=== PATIENT | male | born 1950 | race Asian ===

== ENCOUNTER 2022-10-11 16:12 | Inpatient (IN) | payer MEDICARE ==
[~2022-10-11] VITALS: Ht 167.6 cm; Wt 91.2 kg
[2022-10-12] MEDS ORDERED: ACETAMINOPHEN 325 MG TABLET PO PRN (15:00)
[2022-10-12] MEDS ORDERED: DEXTROSE 50%-WATER 25 GM/50 ML SYRINGE IVP PRN (15:00)
[2022-10-12 16:15] VITALS: BP 127/67; PULSE 77; RESP 19; TEMP 98.3; O2SAT 96
[2022-10-12 16:42] VITALS: BP 127/67; PULSE 77; RESP 19; TEMP 98.3; O2SAT 96
[2022-10-12 17:45] LABS: GLUCOMETER DEV NAME(LOC) 2WR.2B; GLUCOSE,POINT OF CARE 217 MG/DL (70-110)
[2022-10-12] MEDS ORDERED: TraMADol HCL 50 MG TABLET PO PRN (17:45)
[2022-10-12] MEDS ORDERED: OxyCODONE HCL 5 MG IR TABLET PO PRN (18:00)
[2022-10-12] MEDS: INSULIN LISPRO 100 UNITS/ML SQ PRN ×2 (18:26→20:10)
[2022-10-12 19:59] VITALS: BP 122/64; PULSE 85; RESP 20; TEMP 98.3; O2SAT 97
[2022-10-12] MEDS: MELATONIN 3 MG TABLET PO PRN (19:59)
[2022-10-12] MEDS: ETHYL ALCOHOL 62% ANTISEPTIC NASAL SANITIZER 0.6 ML AMPUL NASAL SCH (20:10)
[2022-10-12 20:36] LABS: GLUCOMETER DEV NAME(LOC) 2WR.2B; GLUCOSE,POINT OF CARE 226 MG/DL (70-110)
[2022-10-12 21:00] VITALS: O2SAT 97
[2022-10-13 06:31] LABS: GLUCOMETER DEV NAME(LOC) 2WR.2B; GLUCOSE,POINT OF CARE 157 MG/DL (70-110)
[2022-10-13] MEDS: ETHYL ALCOHOL 62% ANTISEPTIC NASAL SANITIZER 0.6 ML AMPUL NASAL SCH ×2 (08:04→21:22)
[2022-10-13 08:05] VITALS: BP 129/64; PULSE 74; RESP 18; TEMP 98.1; O2SAT 98
[2022-10-13] MEDS: INSULIN LISPRO 100 UNITS/ML SQ PRN ×4 (08:08→21:13)
[2022-10-13 08:28] LABS: BASOPHILS % (AUTO) 0.5 % (0.0-2.0); EOSINOPHILS % (AUTO) 0 % (1.0-6.0); HEMATOCRIT 35.2 % (41-53); HEMOGLOBIN 12.5 g/dL (13.5-17.5); LYMPHOCYTES # (AUTO) 0.7 K/uL (1.0-4.8); LYMPHOCYTES % (AUTO) 9.2 % (22.0-44.0); MEAN CORPUSCULAR HEMOGLOBIN 38.9 pg (26.0-34.0); MEAN CORPUSCULAR HGB CONC 35.5 G/dL (31.0-37.0); MEAN CORPUSCULAR VOLUME 110 fL (80-100); MONOCYTES # (AUTO) 0.9 K/uL (0.1-1.0); MONOCYTES % (AUTO) 12.7 % (2.0-9.0); NEUTROPHILS # (AUTO) 5.7 K/uL (1.8-7.7); NEUTROPHILS % (AUTO) 77.6 % (40.0-70.0); PLATELET COUNT (AUTO) 77 K/uL (150-450); RED CELL DISTRIBUTION WIDTH 18.6 % (11.5-14.5); WHITE BLOOD COUNT (AUTO) 7.3 K/uL (4.5-11.0)
[2022-10-13 08:45] LABS: ALANINE AMINOTRANSFERASE 67 U/L (12-78); ALBUMIN 2.1 g/dL (3.4-5.0); ALKALINE PHOSPHATASE 129 U/L (46-116); ANION GAP 5 mmol/L (8-16); ASPARTATE AMINOTRANSFERASE 50 U/L (15-37); BILIRUBIN,TOTAL 2.2 mg/dL (0.1-1.0); CALCIUM, TOTAL 8.3 mg/dL (8.8-10.5); CARBON DIOXIDE 28 mmol/L (22-29); CHLORIDE 105 mmol/L (98-107); CREATININE 0.84 mg/dL (0.60-1.30); GLOMERULAR FILTR. RATE CALC > 60 mL/min (>60); GLUCOSE,RANDOM 144 mg/dL (70-110); SODIUM SERUM 138 mmol/L (136-145); TOTAL PROTEIN, SERUM 4.9 g/dL (6.4-8.2); UREA NITROGEN, BLOOD 37 mg/dL (7-18)
[2022-10-13] MEDS: EMPAGLIFLOZIN 25 MG TABLET PO SCH (08:49)
[2022-10-13] MEDS: LISINOPRIL 20 MG TABLET PO SCH (08:49)
[2022-10-13] MEDS: PANTOPRAZOLE SODIUM 40 MG DR TABLET PO SCH (08:49)
[2022-10-13] MEDS ORDERED: FUROSEMIDE 20 MG TABLET PO SCH (09:00)
[2022-10-13] MEDS ORDERED: FUROSEMIDE 20 MG TABLET PO PRN (09:00)
[2022-10-13 09:04] VITALS: BP 129/64; PULSE 74; RESP 18; TEMP 98.1; O2SAT 98
[2022-10-13 09:12] VITALS: O2SAT 98
[2022-10-13 11:46] LABS: GLUCOMETER DEV NAME(LOC) 2WR.2B; GLUCOSE,POINT OF CARE 172 MG/DL (70-110)
[2022-10-13] MEDS ORDERED: SODIUM CHLORIDE 0.9% IRRIG BTL 1,000 ML IRRIG ONE (12:02)
[2022-10-13 17:16] LABS: GLUCOMETER DEV NAME(LOC) 2WR.1D; GLUCOSE,POINT OF CARE 206 MG/DL (70-110)
[2022-10-13 17:59] LABS: INR 1.2 (0.9-1.1); PROTHROMBIN TIME 12.1 SEC (9.4-11.6)
[2022-10-13 19:35] VITALS: BP_SYST 109; BP_SYST 133; BP_DIAS 71; BP_DIAS 77; PULSE 84; RESP 18; TEMP 98; O2SAT 99
[2022-10-13 21:01] LABS: GLUCOMETER DEV NAME(LOC) 2WR.1D; GLUCOSE,POINT OF CARE 231 MG/DL (70-110)
[2022-10-13] MEDS: MELATONIN 3 MG TABLET PO PRN (21:08)
[2022-10-13] MEDS: INSULIN GLARGINE,HUM.REC.ANLOG 100 UNITS/ML SQ SCH (21:12)
[2022-10-14 00:47] VITALS: O2SAT 99
[2022-10-14] MEDS ORDERED: FURO20 PO (01:13)
[2022-10-14] MEDS ORDERED: EMPA25TA3 PO (01:13)
[2022-10-14] MEDS ORDERED: INSLAN SQ (01:13)
[2022-10-14 06:36] LABS: GLUCOMETER DEV NAME(LOC) 2WR.1D; GLUCOSE,POINT OF CARE 153 MG/DL (70-110)
[2022-10-14 08:00] VITALS: BP 114/60; PULSE 95; RESP 18; TEMP 98.3; O2SAT 97
[2022-10-14] MEDS: ETHYL ALCOHOL 62% ANTISEPTIC NASAL SANITIZER 0.6 ML AMPUL NASAL SCH ×2 (08:05→21:07)
[2022-10-14] MEDS: EMPAGLIFLOZIN 25 MG TABLET PO SCH (08:05)
[2022-10-14] MEDS: LISINOPRIL 20 MG TABLET PO SCH (08:06)
[2022-10-14] MEDS: MULTIVITAMINS WITH MINERALS, THERAPEUTIC TABLET PO SCH (08:06)
[2022-10-14] MEDS: PANTOPRAZOLE SODIUM 40 MG DR TABLET PO SCH (08:06)
[2022-10-14] MEDS: INSULIN LISPRO 100 UNITS/ML SQ PRN ×4 (08:07→20:44)
[2022-10-14] MEDS ORDERED: LISINOPRIL 10 MG TABLET PO SCH (09:00)
[2022-10-14] MEDS ORDERED: PANTOPRAZOLE SODIUM 40 MG DR TABLET PO SCH (09:00)
[2022-10-14 10:16] VITALS: O2SAT 97
[2022-10-14 13:01] LABS: GLUCOMETER DEV NAME(LOC) 2WR.1D; GLUCOSE,POINT OF CARE 162 MG/DL (70-110)
[2022-10-14 17:16] LABS: GLUCOMETER DEV NAME(LOC) 2WR.1D; GLUCOSE,POINT OF CARE 183 MG/DL (70-110)
[2022-10-14 19:40] VITALS: BP 113/63; PULSE 83; RESP 16; TEMP 98.3; O2SAT 97
[2022-10-14] MEDS: INSULIN GLARGINE,HUM.REC.ANLOG 100 UNITS/ML SQ SCH (20:45)
[2022-10-14] MEDS: LACTULOSE 20 GM/30 ML SOLUTION UDCUP PO PRN (21:10)
[2022-10-14 22:55] VITALS: O2SAT 97
[2022-10-15 00:01] LABS: GLUCOMETER DEV NAME(LOC) 2WR.1D; GLUCOSE,POINT OF CARE 151 MG/DL (70-110)
[2022-10-15 06:56] LABS: GLUCOMETER DEV NAME(LOC) 2WR.2B; GLUCOSE,POINT OF CARE 98 MG/DL (70-110)
[2022-10-15] MEDS: LACTULOSE 20 GM/30 ML SOLUTION UDCUP PO PRN (07:16)
[2022-10-15 07:35] VITALS: BP 104/58; PULSE 85; RESP 18; TEMP 98.3; O2SAT 97
[2022-10-15] MEDS ORDERED: LACTULOSE 20 GM/30 ML SOLUTION UDCUP PO ONE (08:15)
[2022-10-15] MEDS: EMPAGLIFLOZIN 25 MG TABLET PO SCH (08:30)
[2022-10-15] MEDS: PANTOPRAZOLE SODIUM 40 MG DR TABLET PO SCH (08:30)
[2022-10-15] MEDS: MULTIVITAMINS WITH MINERALS, THERAPEUTIC TABLET PO SCH (08:30)
[2022-10-15] MEDS ORDERED: LISINOPRIL 10 MG TABLET PO SCH (09:00)
[2022-10-15] MEDS: SPIRONOLACTONE 25 MG TABLET PO SCH (09:11)
[2022-10-15] MEDS: FUROSEMIDE 20 MG TABLET PO SCH (09:11)
[2022-10-15] MEDS: ETHYL ALCOHOL 62% ANTISEPTIC NASAL SANITIZER 0.6 ML AMPUL NASAL SCH ×2 (09:11→20:43)
[2022-10-15] MEDS: INSULIN LISPRO 100 UNITS/ML SQ PRN ×3 (12:34→20:41)
[2022-10-15 12:51] LABS: GLUCOMETER DEV NAME(LOC) 2WR.2B; GLUCOSE,POINT OF CARE 161 MG/DL (70-110)
[2022-10-15 13:00] VITALS: O2SAT 97
[2022-10-15] MEDS: LACTULOSE 20 GM/30 ML SOLUTION UDCUP PO SCH ×4 (14:00→23:32)
[2022-10-15 17:00] VITALS: BP 113/57; PULSE 89; RESP 18; TEMP 98.1; O2SAT 99
[2022-10-15 18:26] LABS: GLUCOMETER DEV NAME(LOC) 2WR.2B; GLUCOSE,POINT OF CARE 166 MG/DL (70-110)
[2022-10-15 20:00] VITALS: BP 116/56; PULSE 95; RESP 18; TEMP 98.5; O2SAT 96
[2022-10-15] MEDS: INSULIN GLARGINE,HUM.REC.ANLOG 100 UNITS/ML SQ SCH (20:42)
[2022-10-15 20:56] LABS: GLUCOMETER DEV NAME(LOC) 2WR.2B; GLUCOSE,POINT OF CARE 164 MG/DL (70-110)
[2022-10-16 06:46] LABS: GLUCOMETER DEV NAME(LOC) 2WR.2B; GLUCOSE,POINT OF CARE 103 MG/DL (70-110)
[2022-10-16] MEDS: ETHYL ALCOHOL 62% ANTISEPTIC NASAL SANITIZER 0.6 ML AMPUL NASAL SCH ×2 (09:05→19:54)
[2022-10-16] MEDS: MULTIVITAMINS WITH MINERALS, THERAPEUTIC TABLET PO SCH (09:06)
[2022-10-16] MEDS: SPIRONOLACTONE 25 MG TABLET PO SCH (09:06)
[2022-10-16] MEDS: EMPAGLIFLOZIN 25 MG TABLET PO SCH (09:06)
[2022-10-16] MEDS: PANTOPRAZOLE SODIUM 40 MG DR TABLET PO SCH (09:06)
[2022-10-16] MEDS: FUROSEMIDE 20 MG TABLET PO SCH (09:07)
[2022-10-16] MEDS: LACTULOSE 20 GM/30 ML SOLUTION UDCUP PO SCH ×3 (09:11→23:27)
[2022-10-16 09:16] VITALS: BP 121/57; PULSE 80; RESP 18; O2SAT 99
[2022-10-16 15:00] LABS: GLUCOMETER DEV NAME(LOC) 2WR.2B; GLUCOSE,POINT OF CARE 161 MG/DL (70-110)
[2022-10-16 16:01] LABS: GLUCOMETER DEV NAME(LOC) 2WR.1D; GLUCOSE,POINT OF CARE 141 MG/DL (70-110)
[2022-10-16] MEDS: INSULIN LISPRO 100 UNITS/ML SQ PRN ×2 (17:54→20:48)
[2022-10-16] MEDS: INSULIN GLARGINE,HUM.REC.ANLOG 100 UNITS/ML SQ SCH (20:47)
[2022-10-16 21:01] LABS: GLUCOMETER DEV NAME(LOC) 2WR.1D; GLUCOSE,POINT OF CARE 189 MG/DL (70-110)
[2022-10-16 21:11] VITALS: BP 127/55; PULSE 101; RESP 18; TEMP 99; O2SAT 100
[2022-10-16 22:16] VITALS: O2SAT 100
[2022-10-16 23:02] LABS: GLUCOMETER DEV NAME(LOC) 2WR.2B; GLUCOSE,POINT OF CARE 188 MG/DL (70-110)
[2022-10-16 23:16] VITALS: PULSE 97; TEMP 98.7
[2022-10-17 00:49] LABS: APPEARANCE,URINE TURBID (CLEAR); BILIRUBIN,URINE NEGATIVE (NEGATIVE); COLOR,URINE YELLOW (YELLOW); GLUCOSE, URINE (UA) >=1000 mg/dL (NEGATIVE); KETONES,URINE NEGATIVE (NEGATIVE); LEUKOCYTE ESTERASE ,URINE LARGE (NEGATIVE); NITRATE,URINE NEGATIVE (NEGATIVE); OCCULT BLOOD,URINE LARGE (NEGATIVE); PROTEIN,URINE 30-70 mg/dL (NEGATIVE); SPECIFIC GRAVITIY, URINE 1.029 (1.003-1.030); UROBILINOGEN,URINE <=1.0 mg/dL (<=1.0)
[2022-10-17 00:59] LABS: BACTERIA,URINE Moderate /HPF (None Seen); RBC,URINE 26-50 /HPF (0-2); SQUAMOUS EPITHELIAL CELL,UR None Seen /LPF (None Seen); WBC,URINE 26-50 /HPF (0-5)
[2022-10-17 07:10] LABS: EOSINOPHILS % (AUTO) 0.8 % (1.0-6.0); LYMPHOCYTES # (AUTO) 0.9 K/uL (1.0-4.8); LYMPHOCYTES % (AUTO) 7.9 % (22.0-44.0); MEAN CORPUSCULAR HEMOGLOBIN 38.2 pg (26.0-34.0); MEAN CORPUSCULAR HGB CONC 34.2 G/dL (31.0-37.0); MEAN CORPUSCULAR VOLUME 112 fL (80-100); MONOCYTES # (AUTO) 0.9 K/uL (0.1-1.0); MONOCYTES % (AUTO) 7.8 % (2.0-9.0); NEUTROPHILS # (AUTO) 9.1 K/uL (1.8-7.7); NEUTROPHILS % (AUTO) 82.5 % (40.0-70.0); RED BLOOD CELL COUNT(AUTO) 3.14 MIL/uL (4.50-5.90); RED CELL DISTRIBUTION WIDTH 18.3 % (11.5-14.5)
[2022-10-17 07:26] LABS: ALANINE AMINOTRANSFERASE 68 U/L (12-78); ALKALINE PHOSPHATASE 146 U/L (46-116); ANION GAP 6 mmol/L (8-16); ASPARTATE AMINOTRANSFERASE 55 U/L (15-37); BILIRUBIN,TOTAL 3.4 mg/dL (0.1-1.0); CALCIUM, TOTAL 7.7 mg/dL (8.8-10.5); CARBON DIOXIDE 25 mmol/L (22-29); CHLORIDE 106 mmol/L (98-107); CREATININE 0.93 mg/dL (0.60-1.30); GLOMERULAR FILTR. RATE CALC > 60 mL/min (>60); GLUCOSE,RANDOM 123 mg/dL (70-110); POTASSIUM 3.9 mmol/L (3.5-5.1); SODIUM SERUM 137 mmol/L (136-145); TOTAL PROTEIN, SERUM 4.6 g/dL (6.4-8.2); UREA NITROGEN, BLOOD 17 mg/dL (7-18)
[2022-10-17 07:31] LABS: GLUCOMETER DEV NAME(LOC) 2WR.1D; GLUCOSE,POINT OF CARE 120 MG/DL (70-110)
[2022-10-17] MEDS: ETHYL ALCOHOL 62% ANTISEPTIC NASAL SANITIZER 0.6 ML AMPUL NASAL SCH ×2 (07:37→20:12)
[2022-10-17] MEDS: SPIRONOLACTONE 25 MG TABLET PO SCH (07:38)
[2022-10-17] MEDS: EMPAGLIFLOZIN 25 MG TABLET PO SCH (07:40)
[2022-10-17] MEDS: LACTULOSE 20 GM/30 ML SOLUTION UDCUP PO SCH ×3 (07:40→22:09)
[2022-10-17] MEDS: MULTIVITAMINS WITH MINERALS, THERAPEUTIC TABLET PO SCH (07:40)
[2022-10-17] MEDS: FUROSEMIDE 20 MG TABLET PO SCH (07:41)
[2022-10-17] MEDS: PANTOPRAZOLE SODIUM 40 MG DR TABLET PO SCH (07:41)
[2022-10-17 07:50] VITALS: BP 124/67; PULSE 98; RESP 18; TEMP 98.4; O2SAT 98
[2022-10-17 08:18] LABS: PLATELET COUNT (AUTO) 53 K/uL (150-450); RBC MORPHOLOGY COMMENT ABNORMAL RBC MORPH
[2022-10-17 08:30] VITALS: O2SAT 98
[2022-10-17 11:51] LABS: GLUCOMETER DEV NAME(LOC) 2WR.2B; GLUCOSE,POINT OF CARE 180 MG/DL (70-110)
[2022-10-17] MEDS: INSULIN LISPRO 100 UNITS/ML SQ PRN ×3 (12:16→20:46)
[2022-10-17 17:31] LABS: GLUCOMETER DEV NAME(LOC) 2WR.1D; GLUCOSE,POINT OF CARE 176 MG/DL (70-110)
[2022-10-17 19:34] VITALS: BP 130/57; PULSE 101; RESP 18; TEMP 98.5; O2SAT 99
[2022-10-17] MEDS: INSULIN GLARGINE,HUM.REC.ANLOG 100 UNITS/ML SQ SCH (20:45)
[2022-10-17 21:31] LABS: GLUCOMETER DEV NAME(LOC) 2WR.1D; GLUCOSE,POINT OF CARE 228 MG/DL (70-110)
[2022-10-17 23:36] VITALS: O2SAT 99
[2022-10-18 07:01] LABS: GLUCOMETER DEV NAME(LOC) 2WR.1D; GLUCOSE,POINT OF CARE 96 MG/DL (70-110)
[2022-10-18 08:00] VITALS: BP 116/57; PULSE 89; RESP 19; TEMP 98.5; O2SAT 97
[2022-10-18] MEDS: MULTIVITAMINS WITH MINERALS, THERAPEUTIC TABLET PO SCH (08:29)
[2022-10-18] MEDS: FUROSEMIDE 20 MG TABLET PO SCH (08:29)
[2022-10-18] MEDS: ETHYL ALCOHOL 62% ANTISEPTIC NASAL SANITIZER 0.6 ML AMPUL NASAL SCH ×2 (08:29→20:19)
[2022-10-18] MEDS: SPIRONOLACTONE 25 MG TABLET PO SCH (08:29)
[2022-10-18] MEDS: PANTOPRAZOLE SODIUM 40 MG DR TABLET PO SCH (08:29)
[2022-10-18] MEDS: EMPAGLIFLOZIN 25 MG TABLET PO SCH (08:29)
[2022-10-18] MEDS: LACTULOSE 20 GM/30 ML SOLUTION UDCUP PO SCH ×3 (08:29→23:01)
[2022-10-18] MEDS: NITROFURANTOIN MONOHYD/M-CRYST 100 MG CAPSULE [MACROBID] PO SCH ×2 (10:42→20:14)
[2022-10-18] MEDS: INSULIN LISPRO 100 UNITS/ML SQ PRN ×3 (12:18→20:19)
[2022-10-18 12:36] LABS: GLUCOMETER DEV NAME(LOC) 2WR.1D; GLUCOSE,POINT OF CARE 168 MG/DL (70-110)
[2022-10-18 17:16] LABS: GLUCOMETER DEV NAME(LOC) 2WR.1D; GLUCOSE,POINT OF CARE 212 MG/DL (70-110)
[2022-10-18 20:06] LABS: GLUCOMETER DEV NAME(LOC) 2WR.1D; GLUCOSE,POINT OF CARE 208 MG/DL (70-110)
[2022-10-18] MEDS: TAMSULOSIN HCL 0.4 MG CAPSULE PO SCH (20:14)
[2022-10-18] MEDS: INSULIN GLARGINE,HUM.REC.ANLOG 100 UNITS/ML SQ SCH (20:18)
[2022-10-18 20:25] VITALS: BP 131/72; PULSE 103; RESP 18; TEMP 99.2; O2SAT 97
[2022-10-18 20:38] VITALS: O2SAT 97
[2022-10-19] VITALS (7 sets, daily range): BP systolic 114–122; BP diastolic 56–65; PULSE 94–108; RESP 19; TEMP 98.5–99.6; O2SAT 93–97
[2022-10-19 06:47] LABS: GLUCOMETER DEV NAME(LOC) 2WR.1D; GLUCOSE,POINT OF CARE 176 MG/DL (70-110)
[2022-10-19] MEDS: FUROSEMIDE 20 MG TABLET PO SCH (08:17)
[2022-10-19] MEDS: SPIRONOLACTONE 25 MG TABLET PO SCH (08:17)
[2022-10-19] MEDS: EMPAGLIFLOZIN 25 MG TABLET PO SCH (08:17)
[2022-10-19] MEDS: NITROFURANTOIN MONOHYD/M-CRYST 100 MG CAPSULE [MACROBID] PO SCH ×2 (08:17→20:06)
[2022-10-19] MEDS: PANTOPRAZOLE SODIUM 40 MG DR TABLET PO SCH (08:17)
[2022-10-19] MEDS: MULTIVITAMINS WITH MINERALS, THERAPEUTIC TABLET PO SCH (08:17)
[2022-10-19] MEDS: LACTULOSE 20 GM/30 ML SOLUTION UDCUP PO SCH ×3 (08:17→23:00)
[2022-10-19] MEDS: ETHYL ALCOHOL 62% ANTISEPTIC NASAL SANITIZER 0.6 ML AMPUL NASAL SCH ×2 (08:17→20:06)
[2022-10-19] MEDS: INSULIN LISPRO 100 UNITS/ML SQ PRN ×4 (08:28→20:14)
[2022-10-19 12:31] LABS: GLUCOMETER DEV NAME(LOC) 2WR.1D; GLUCOSE,POINT OF CARE 198 MG/DL (70-110)
[2022-10-19 16:56] LABS: GLUCOMETER DEV NAME(LOC) 2WR.1D; GLUCOSE,POINT OF CARE 220 MG/DL (70-110)
[2022-10-19] MEDS: TAMSULOSIN HCL 0.4 MG CAPSULE PO SCH (20:08)
[2022-10-19] MEDS: INSULIN GLARGINE,HUM.REC.ANLOG 100 UNITS/ML SQ SCH (20:13)
[2022-10-20 00:41] LABS: GLUCOMETER DEV NAME(LOC) 2WR.1D; GLUCOSE,POINT OF CARE 173 MG/DL (70-110)
[2022-10-20 07:06] LABS: GLUCOMETER DEV NAME(LOC) 2WR.2B; GLUCOSE,POINT OF CARE 139 MG/DL (70-110)
[2022-10-20] MEDS: ETHYL ALCOHOL 62% ANTISEPTIC NASAL SANITIZER 0.6 ML AMPUL NASAL SCH ×2 (07:43→23:11)
[2022-10-20] MEDS: NITROFURANTOIN MONOHYD/M-CRYST 100 MG CAPSULE [MACROBID] PO SCH ×2 (07:43→23:17)
[2022-10-20] MEDS: LACTULOSE 20 GM/30 ML SOLUTION UDCUP PO SCH ×3 (07:43→23:11)
[2022-10-20] MEDS: MULTIVITAMINS WITH MINERALS, THERAPEUTIC TABLET PO SCH (07:43)
[2022-10-20] MEDS: EMPAGLIFLOZIN 25 MG TABLET PO SCH (07:43)
[2022-10-20] MEDS: PANTOPRAZOLE SODIUM 40 MG DR TABLET PO SCH (07:43)
[2022-10-20] MEDS: SPIRONOLACTONE 25 MG TABLET PO SCH (07:44)
[2022-10-20] MEDS: FUROSEMIDE 20 MG TABLET PO SCH (08:03)
[2022-10-20 08:05] VITALS: BP 125/63; PULSE 86; RESP 18; TEMP 98.2; O2SAT 98
[2022-10-20 10:18] VITALS: O2SAT 98
[2022-10-20 12:21] LABS: GLUCOMETER DEV NAME(LOC) 2WR.1D; GLUCOSE,POINT OF CARE 170 MG/DL (70-110)
[2022-10-20] MEDS: INSULIN LISPRO 100 UNITS/ML SQ PRN ×3 (12:23→23:14)
[2022-10-20 17:51] LABS: GLUCOMETER DEV NAME(LOC) 2WR.1D; GLUCOSE,POINT OF CARE 203 MG/DL (70-110)
[2022-10-20 20:21] LABS: GLUCOMETER DEV NAME(LOC) 2WR.2B; GLUCOSE,POINT OF CARE 182 MG/DL (70-110)
[2022-10-20 20:41] VITALS: BP 118/55; PULSE 96; RESP 19; TEMP 98.5; O2SAT 98
[2022-10-20 21:16] VITALS: O2SAT 97
[2022-10-20 22:02] VITALS: O2SAT 98
[2022-10-20] MEDS: INSULIN GLARGINE,HUM.REC.ANLOG 100 UNITS/ML SQ SCH (23:13)
[2022-10-20] MEDS: TAMSULOSIN HCL 0.4 MG CAPSULE PO SCH (23:16)
[2022-10-21 06:56] LABS: GLUCOMETER DEV NAME(LOC) 2WR.1D; GLUCOSE,POINT OF CARE 166 MG/DL (70-110)
[2022-10-21 08:10] VITALS: BP 103/54; PULSE 101; RESP 18; TEMP 98.5; O2SAT 97
[2022-10-21] MEDS: INSULIN LISPRO 100 UNITS/ML SQ PRN ×4 (08:16→20:16)
[2022-10-21] MEDS: SPIRONOLACTONE 25 MG TABLET PO SCH (08:17)
[2022-10-21] MEDS: EMPAGLIFLOZIN 25 MG TABLET PO SCH (08:17)
[2022-10-21] MEDS: LACTULOSE 20 GM/30 ML SOLUTION UDCUP PO SCH ×3 (08:17→23:46)
[2022-10-21] MEDS: ETHYL ALCOHOL 62% ANTISEPTIC NASAL SANITIZER 0.6 ML AMPUL NASAL SCH ×2 (08:17→20:10)
[2022-10-21] MEDS: PANTOPRAZOLE SODIUM 40 MG DR TABLET PO SCH (08:18)
[2022-10-21] MEDS: MULTIVITAMINS WITH MINERALS, THERAPEUTIC TABLET PO SCH (08:18)
[2022-10-21] MEDS: FUROSEMIDE 20 MG TABLET PO SCH (08:18)
[2022-10-21] MEDS: NITROFURANTOIN MONOHYD/M-CRYST 100 MG CAPSULE [MACROBID] PO SCH ×2 (08:18→20:16)
[2022-10-21 08:55] VITALS: O2SAT 97
[2022-10-21 11:10] LABS: BASOPHILS % (AUTO) 0.7 % (0.0-2.0); EOSINOPHILS % (AUTO) 0.9 % (1.0-6.0); HEMATOCRIT 32.7 % (41-53); HEMOGLOBIN 11.4 g/dL (13.5-17.5); LYMPHOCYTES # (AUTO) 0.4 K/uL (1.0-4.8); LYMPHOCYTES % (AUTO) 8.6 % (22.0-44.0); MEAN CORPUSCULAR HEMOGLOBIN 38.5 pg (26.0-34.0); MEAN CORPUSCULAR HGB CONC 34.9 G/dL (31.0-37.0); MEAN CORPUSCULAR VOLUME 110 fL (80-100); MONOCYTES # (AUTO) 0.6 K/uL (0.1-1.0); MONOCYTES % (AUTO) 11.8 % (2.0-9.0); NEUTROPHILS # (AUTO) 3.8 K/uL (1.8-7.7); RED BLOOD CELL COUNT(AUTO) 2.96 MIL/uL (4.50-5.90); RED CELL DISTRIBUTION WIDTH 17.2 % (11.5-14.5); WHITE BLOOD COUNT (AUTO) 4.9 K/uL (4.5-11.0)
[2022-10-21 11:24] LABS: ALANINE AMINOTRANSFERASE 57 U/L (12-78); ALBUMIN 2.1 g/dL (3.4-5.0); ALKALINE PHOSPHATASE 191 U/L (46-116); ANION GAP 7 mmol/L (8-16); ASPARTATE AMINOTRANSFERASE 48 U/L (15-37); BILIRUBIN,TOTAL 2.7 mg/dL (0.1-1.0); CALCIUM, TOTAL 8.1 mg/dL (8.8-10.5); CARBON DIOXIDE 24 mmol/L (22-29); CHLORIDE 103 mmol/L (98-107); CREATININE 1.07 mg/dL (0.60-1.30); GLOMERULAR FILTR. RATE CALC > 60 mL/min (>60); GLUCOSE,RANDOM 228 mg/dL (70-110); POTASSIUM 4.4 mmol/L (3.5-5.1); SODIUM SERUM 134 mmol/L (136-145); UREA NITROGEN, BLOOD 13 mg/dL (7-18)
[2022-10-21 11:30] LABS: PLATELET COUNT (AUTO) 72 K/uL (150-450)
[2022-10-21 11:31] LABS: RBC MORPHOLOGY COMMENT ABNORMAL RBC MORPH
[2022-10-21 12:11] LABS: GLUCOMETER DEV NAME(LOC) 2WR.1D; GLUCOSE,POINT OF CARE 212 MG/DL (70-110)
[2022-10-21 17:26] LABS: GLUCOMETER DEV NAME(LOC) 2WR.1D; GLUCOSE,POINT OF CARE 164 MG/DL (70-110)
[2022-10-21] MEDS: INSULIN GLARGINE,HUM.REC.ANLOG 100 UNITS/ML SQ SCH (20:13)
[2022-10-21] MEDS: TAMSULOSIN HCL 0.4 MG CAPSULE PO SCH (20:16)
[2022-10-21 21:30] VITALS: O2SAT 96
[2022-10-21 21:52] VITALS: BP 110/59; PULSE 109; RESP 18; TEMP 99; O2SAT 96
[2022-10-21 22:06] VITALS: O2SAT 96
[2022-10-22 02:30] VITALS: PULSE 94; TEMP 99.1
[2022-10-22 05:31] LABS: GLUCOMETER DEV NAME(LOC) 2WR.1D; GLUCOSE,POINT OF CARE 189 MG/DL (70-110)
[2022-10-22 07:16] LABS: GLUCOMETER DEV NAME(LOC) 2WR.1D; GLUCOSE,POINT OF CARE 105 MG/DL (70-110)
[2022-10-22 08:00] VITALS: BP 111/52; PULSE 89; RESP 18; TEMP 98.4; O2SAT 96
[2022-10-22] MEDS: LACTULOSE 20 GM/30 ML SOLUTION UDCUP PO SCH ×3 (08:11→22:02)
[2022-10-22] MEDS: ETHYL ALCOHOL 62% ANTISEPTIC NASAL SANITIZER 0.6 ML AMPUL NASAL SCH ×2 (08:11→20:35)
[2022-10-22] MEDS: EMPAGLIFLOZIN 25 MG TABLET PO SCH (08:12)
[2022-10-22] MEDS: FUROSEMIDE 20 MG TABLET PO SCH (08:12)
[2022-10-22] MEDS: PANTOPRAZOLE SODIUM 40 MG DR TABLET PO SCH (08:12)
[2022-10-22] MEDS: NITROFURANTOIN MONOHYD/M-CRYST 100 MG CAPSULE [MACROBID] PO SCH ×2 (08:12→20:34)
[2022-10-22] MEDS: SPIRONOLACTONE 25 MG TABLET PO SCH (08:12)
[2022-10-22] MEDS: MULTIVITAMINS WITH MINERALS, THERAPEUTIC TABLET PO SCH (08:12)
[2022-10-22] MEDS: INSULIN LISPRO 100 UNITS/ML SQ PRN ×2 (11:59→16:49)
[2022-10-22 12:06] LABS: GLUCOMETER DEV NAME(LOC) 2WR.1D; GLUCOSE,POINT OF CARE 281 MG/DL (70-110)
[2022-10-22 17:11] LABS: GLUCOMETER DEV NAME(LOC) 2WR.1D; GLUCOSE,POINT OF CARE 209 MG/DL (70-110)
[2022-10-22 20:00] VITALS: BP 117/62; PULSE 108; RESP 20; TEMP 98.4; O2SAT 95
[2022-10-22] MEDS: TAMSULOSIN HCL 0.4 MG CAPSULE PO SCH (20:35)
[2022-10-22] MEDS: INSULIN GLARGINE,HUM.REC.ANLOG 100 UNITS/ML SQ SCH (20:42)
[2022-10-22 21:06] LABS: GLUCOMETER DEV NAME(LOC) 2WR.1D; GLUCOSE,POINT OF CARE 101 MG/DL (70-110)
[2022-10-22 21:53] VITALS: O2SAT 95
[2022-10-23 07:41] LABS: GLUCOMETER DEV NAME(LOC) 2WR.1D; GLUCOSE,POINT OF CARE 72 MG/DL (70-110)
[2022-10-23] MEDS: LACTULOSE 20 GM/30 ML SOLUTION UDCUP PO SCH ×3 (09:00→22:02)
[2022-10-23] MEDS: FUROSEMIDE 20 MG TABLET PO SCH (09:01)
[2022-10-23] MEDS: EMPAGLIFLOZIN 25 MG TABLET PO SCH (09:01)
[2022-10-23] MEDS: NITROFURANTOIN MONOHYD/M-CRYST 100 MG CAPSULE [MACROBID] PO SCH ×2 (09:01→20:27)
[2022-10-23] MEDS: MULTIVITAMINS WITH MINERALS, THERAPEUTIC TABLET PO SCH (09:01)
[2022-10-23] MEDS: SPIRONOLACTONE 25 MG TABLET PO SCH (09:01)
[2022-10-23] MEDS: PANTOPRAZOLE SODIUM 40 MG DR TABLET PO SCH (09:01)
[2022-10-23] MEDS: ETHYL ALCOHOL 62% ANTISEPTIC NASAL SANITIZER 0.6 ML AMPUL NASAL SCH ×2 (09:32→20:28)
[2022-10-23 09:38] VITALS: BP 109/57; PULSE 91; RESP 20; TEMP 99.7; O2SAT 97
[2022-10-23] MEDS: INSULIN LISPRO 100 UNITS/ML SQ PRN ×3 (12:35→20:33)
[2022-10-23 19:06] LABS: GLUCOMETER DEV NAME(LOC) 2WR.2B; GLUCOSE,POINT OF CARE 185 MG/DL (70-110)
[2022-10-23 19:06] LABS: GLUCOMETER DEV NAME(LOC) 2WR.2B; GLUCOSE,POINT OF CARE 191 MG/DL (70-110)
[2022-10-23 20:00] VITALS: BP 126/66; PULSE 107; RESP 19; TEMP 98.5; O2SAT 97
[2022-10-23] MEDS: TAMSULOSIN HCL 0.4 MG CAPSULE PO SCH (20:28)
[2022-10-23] MEDS: INSULIN GLARGINE,HUM.REC.ANLOG 100 UNITS/ML SQ SCH (20:32)
[2022-10-23 21:00] VITALS: O2SAT 97
[2022-10-23 21:46] LABS: GLUCOMETER DEV NAME(LOC) 2WR.2B; GLUCOSE,POINT OF CARE 152 MG/DL (70-110)
[2022-10-24 07:06] LABS: GLUCOMETER DEV NAME(LOC) 2WR.1D; GLUCOSE,POINT OF CARE 73 MG/DL (70-110)
[2022-10-24 08:00] VITALS: BP 118/71; PULSE 102; RESP 18; TEMP 98.8; O2SAT 98
[2022-10-24] MEDS: ETHYL ALCOHOL 62% ANTISEPTIC NASAL SANITIZER 0.6 ML AMPUL NASAL SCH ×2 (08:14→20:43)
[2022-10-24] MEDS: LACTULOSE 20 GM/30 ML SOLUTION UDCUP PO SCH ×3 (08:14→23:57)
[2022-10-24] MEDS: EMPAGLIFLOZIN 25 MG TABLET PO SCH (08:15)
[2022-10-24] MEDS: PANTOPRAZOLE SODIUM 40 MG DR TABLET PO SCH (08:15)
[2022-10-24] MEDS: SPIRONOLACTONE 25 MG TABLET PO SCH (08:15)
[2022-10-24] MEDS: NITROFURANTOIN MONOHYD/M-CRYST 100 MG CAPSULE [MACROBID] PO SCH ×2 (08:15→20:43)
[2022-10-24] MEDS: MULTIVITAMINS WITH MINERALS, THERAPEUTIC TABLET PO SCH (08:15)
[2022-10-24] MEDS: FUROSEMIDE 20 MG TABLET PO SCH (08:15)
[2022-10-24 11:22] VITALS: BP 131/64; PULSE 96; RESP 18; TEMP 98.5; O2SAT 98
[2022-10-24] MEDS: INSULIN LISPRO 100 UNITS/ML SQ PRN ×3 (11:51→20:45)
[2022-10-24 11:56] LABS: GLUCOMETER DEV NAME(LOC) 2WR.1D; GLUCOSE,POINT OF CARE 182 MG/DL (70-110)
[2022-10-24 17:57] LABS: GLUCOMETER DEV NAME(LOC) 2WR.1D; GLUCOSE,POINT OF CARE 195 MG/DL (70-110)
[2022-10-24 20:15] VITALS: BP 123/61; PULSE 95; RESP 18; TEMP 98.4; O2SAT 95
[2022-10-24] MEDS: TAMSULOSIN HCL 0.4 MG CAPSULE PO SCH (20:43)
[2022-10-24] MEDS: GABAPENTIN 100 MG CAPSULE PO SCH (20:43)
[2022-10-24] MEDS: INSULIN GLARGINE,HUM.REC.ANLOG 100 UNITS/ML SQ SCH (20:46)
[2022-10-24 21:01] LABS: GLUCOMETER DEV NAME(LOC) 2WR.2B; GLUCOSE,POINT OF CARE 236 MG/DL (70-110)
[2022-10-24 22:26] VITALS: O2SAT 95
[2022-10-25 07:11] LABS: GLUCOMETER DEV NAME(LOC) 2WR.2B; GLUCOSE,POINT OF CARE 86 MG/DL (70-110)
[2022-10-25] MEDS: LACTULOSE 20 GM/30 ML SOLUTION UDCUP PO SCH ×2 (07:46→15:56)
[2022-10-25] MEDS: ETHYL ALCOHOL 62% ANTISEPTIC NASAL SANITIZER 0.6 ML AMPUL NASAL SCH ×2 (07:48→20:10)
[2022-10-25] MEDS: MULTIVITAMINS WITH MINERALS, THERAPEUTIC TABLET PO SCH (07:49)
[2022-10-25] MEDS: PANTOPRAZOLE SODIUM 40 MG DR TABLET PO SCH (07:49)
[2022-10-25] MEDS: NITROFURANTOIN MONOHYD/M-CRYST 100 MG CAPSULE [MACROBID] PO SCH (07:49)
[2022-10-25] MEDS: SPIRONOLACTONE 25 MG TABLET PO SCH (07:50)
[2022-10-25] MEDS: EMPAGLIFLOZIN 25 MG TABLET PO SCH (07:50)
[2022-10-25] MEDS: FUROSEMIDE 20 MG TABLET PO SCH (07:51)
[2022-10-25 08:05] VITALS: BP 120/66; PULSE 87; RESP 18; TEMP 98.4; O2SAT 98
[2022-10-25 11:46] LABS: GLUCOMETER DEV NAME(LOC) 2WR.1D; GLUCOSE,POINT OF CARE 177 MG/DL (70-110)
[2022-10-25] MEDS: INSULIN LISPRO 100 UNITS/ML SQ PRN ×3 (12:43→20:23)
[2022-10-25 14:04] LABS: APPEARANCE,URINE CLEAR (CLEAR); BILIRUBIN,URINE NEGATIVE (NEGATIVE); COLOR,URINE YELLOW (YELLOW); GLUCOSE, URINE (UA) >=1000 mg/dL (NEGATIVE); KETONES,URINE NEGATIVE (NEGATIVE); LEUKOCYTE ESTERASE ,URINE SMALL (NEGATIVE); NITRATE,URINE NEGATIVE (NEGATIVE); OCCULT BLOOD,URINE NEGATIVE (NEGATIVE); PH,URINE 6.5 (5.0-8.0); PROTEIN,URINE NEGATIVE (NEGATIVE); SPECIFIC GRAVITIY, URINE 1.031 (1.003-1.030); UROBILINOGEN,URINE <=1.0 mg/dL (<=1.0)
[2022-10-25 14:08] LABS: BACTERIA,URINE Moderate /HPF (None Seen); RBC,URINE 0-2 /HPF (0-2); SQUAMOUS EPITHELIAL CELL,UR Few /LPF (None Seen)
[2022-10-25 17:01] LABS: GLUCOMETER DEV NAME(LOC) 2WR.1D; GLUCOSE,POINT OF CARE 159 MG/DL (70-110)
[2022-10-25] MEDS: GABAPENTIN 100 MG CAPSULE PO SCH (20:10)
[2022-10-25] MEDS: TAMSULOSIN HCL 0.4 MG CAPSULE PO SCH (20:10)
[2022-10-25] MEDS: INSULIN GLARGINE,HUM.REC.ANLOG 100 UNITS/ML SQ SCH (20:22)
[2022-10-25 20:40] LABS: GLUCOMETER DEV NAME(LOC) 2WR.1D; GLUCOSE,POINT OF CARE 223 MG/DL (70-110)
[2022-10-25 21:00] VITALS: BP 107/55; PULSE 109; RESP 18; TEMP 98.3; O2SAT 97
[2022-10-25] MEDS: MELATONIN 3 MG TABLET PO PRN (22:03)
[2022-10-25 23:54] VITALS: O2SAT 97
[2022-10-26] MEDS: LACTULOSE 20 GM/30 ML SOLUTION UDCUP PO SCH ×4 (00:22→23:14)
[2022-10-26 06:56] LABS: GLUCOMETER DEV NAME(LOC) 2WR.1D; GLUCOSE,POINT OF CARE 90 MG/DL (70-110)
[2022-10-26] MEDS: ETHYL ALCOHOL 62% ANTISEPTIC NASAL SANITIZER 0.6 ML AMPUL NASAL SCH ×2 (08:42→20:39)
[2022-10-26] MEDS: SPIRONOLACTONE 25 MG TABLET PO SCH (08:44)
[2022-10-26] MEDS: MULTIVITAMINS WITH MINERALS, THERAPEUTIC TABLET PO SCH (08:44)
[2022-10-26] MEDS: FUROSEMIDE 20 MG TABLET PO SCH (08:44)
[2022-10-26] MEDS: PANTOPRAZOLE SODIUM 40 MG DR TABLET PO SCH (08:45)
[2022-10-26] MEDS: EMPAGLIFLOZIN 25 MG TABLET PO SCH (08:45)
[2022-10-26 09:00] VITALS: BP_SYST 125; BP_SYST 92; BP_DIAS 57; BP_DIAS 68; PULSE 120; PULSE 86; RESP 18; TEMP 97.8; TEMP 98.1; O2SAT 97; O2SAT 98
[2022-10-26] MEDS: INSULIN LISPRO 100 UNITS/ML SQ PRN ×2 (12:43→20:44)
[2022-10-26 13:05] LABS: GLUCOMETER DEV NAME(LOC) 2WR.2B; GLUCOSE,POINT OF CARE 186 MG/DL (70-110)
[2022-10-26 17:51] LABS: GLUCOMETER DEV NAME(LOC) 2WR.2B; GLUCOSE,POINT OF CARE 84 MG/DL (70-110)
[2022-10-26 20:01] VITALS: BP 124/66; PULSE 91; RESP 18; TEMP 98.3; O2SAT 97
[2022-10-26] MEDS: GABAPENTIN 100 MG CAPSULE PO SCH (20:39)
[2022-10-26] MEDS: TAMSULOSIN HCL 0.4 MG CAPSULE PO SCH (20:39)
[2022-10-26] MEDS: INSULIN GLARGINE,HUM.REC.ANLOG 100 UNITS/ML SQ SCH (20:41)
[2022-10-26 20:46] LABS: GLUCOMETER DEV NAME(LOC) 2WR.1D; GLUCOSE,POINT OF CARE 150 MG/DL (70-110)
[2022-10-26 22:00] VITALS: O2SAT 97
[2022-10-27 06:51] LABS: GLUCOMETER DEV NAME(LOC) 2WR.2B; GLUCOSE,POINT OF CARE 94 MG/DL (70-110)
[2022-10-27 08:10] VITALS: BP 118/59; PULSE 89; RESP 18; TEMP 98.9; O2SAT 96
[2022-10-27] MEDS: LACTULOSE 20 GM/30 ML SOLUTION UDCUP PO SCH ×3 (08:44→22:20)
[2022-10-27] MEDS: MULTIVITAMINS WITH MINERALS, THERAPEUTIC TABLET PO SCH (08:45)
[2022-10-27] MEDS: PANTOPRAZOLE SODIUM 40 MG DR TABLET PO SCH (08:45)
[2022-10-27] MEDS: FUROSEMIDE 20 MG TABLET PO SCH (08:46)
[2022-10-27] MEDS: EMPAGLIFLOZIN 25 MG TABLET PO SCH (08:47)
[2022-10-27] MEDS: SPIRONOLACTONE 25 MG TABLET PO SCH (08:47)
[2022-10-27] MEDS: ETHYL ALCOHOL 62% ANTISEPTIC NASAL SANITIZER 0.6 ML AMPUL NASAL SCH ×2 (08:50→20:54)
[2022-10-27 12:36] LABS: GLUCOMETER DEV NAME(LOC) 2WR.1D; GLUCOSE,POINT OF CARE 150 MG/DL (70-110)
[2022-10-27] MEDS: INSULIN LISPRO 100 UNITS/ML SQ PRN ×2 (12:51→17:45)
[2022-10-27 17:16] LABS: GLUCOMETER DEV NAME(LOC) 2WR.1D; GLUCOSE,POINT OF CARE 166 MG/DL (70-110)
[2022-10-27 20:00] VITALS: BP 118/69; PULSE 109; RESP 18; TEMP 98.3; O2SAT 98
[2022-10-27] MEDS: TAMSULOSIN HCL 0.4 MG CAPSULE PO SCH (20:54)
[2022-10-27] MEDS: GABAPENTIN 100 MG CAPSULE PO SCH (20:54)
[2022-10-27] MEDS: INSULIN GLARGINE,HUM.REC.ANLOG 100 UNITS/ML SQ SCH (20:57)
[2022-10-27 21:46] LABS: GLUCOMETER DEV NAME(LOC) 2WR.1D; GLUCOSE,POINT OF CARE 122 MG/DL (70-110)
[2022-10-28 03:17] VITALS: O2SAT 98
[2022-10-28 07:54] LABS: EOSINOPHILS % (AUTO) 4.6 % (1.0-6.0); HEMATOCRIT 31.2 % (41-53); LYMPHOCYTES # (AUTO) 0.6 K/uL (1.0-4.8); LYMPHOCYTES % (AUTO) 16.5 % (22.0-44.0); MEAN CORPUSCULAR HEMOGLOBIN 38.8 pg (26.0-34.0); MEAN CORPUSCULAR HGB CONC 35.2 G/dL (31.0-37.0); MEAN CORPUSCULAR VOLUME 110 fL (80-100); MONOCYTES # (AUTO) 0.3 K/uL (0.1-1.0); MONOCYTES % (AUTO) 9.9 % (2.0-9.0); NEUTROPHILS # (AUTO) 2.4 K/uL (1.8-7.7); PLATELET COUNT (AUTO) 79 K/uL (150-450); RED BLOOD CELL COUNT(AUTO) 2.83 MIL/uL (4.50-5.90); RED CELL DISTRIBUTION WIDTH 16.6 % (11.5-14.5); WHITE BLOOD COUNT (AUTO) 3.5 K/uL (4.5-11.0)
[2022-10-28 08:02] LABS: RBC MORPHOLOGY COMMENT ABNORMAL RBC MORPH
[2022-10-28 08:06] VITALS: BP 127/63; PULSE 106; RESP 19; TEMP 97.9; O2SAT 94
[2022-10-28 08:17] LABS: ALANINE AMINOTRANSFERASE 33 U/L (12-78); ALBUMIN 1.8 g/dL (3.4-5.0); ALKALINE PHOSPHATASE 202 U/L (46-116); ANION GAP 7 mmol/L (8-16); ASPARTATE AMINOTRANSFERASE 36 U/L (15-37); BILIRUBIN,TOTAL 2.6 mg/dL (0.1-1.0); CALCIUM, TOTAL 7.7 mg/dL (8.8-10.5); CARBON DIOXIDE 25 mmol/L (22-29); CHLORIDE 109 mmol/L (98-107); CREATININE 0.78 mg/dL (0.60-1.30); GLOMERULAR FILTR. RATE CALC > 60 mL/min (>60); GLUCOSE,RANDOM 123 mg/dL (70-110); POTASSIUM 3.7 mmol/L (3.5-5.1); SODIUM SERUM 141 mmol/L (136-145); TOTAL PROTEIN, SERUM 4.6 g/dL (6.4-8.2); UREA NITROGEN, BLOOD 12 mg/dL (7-18)
[2022-10-28] MEDS: LACTULOSE 20 GM/30 ML SOLUTION UDCUP PO SCH ×3 (08:45→22:06)
[2022-10-28] MEDS: ETHYL ALCOHOL 62% ANTISEPTIC NASAL SANITIZER 0.6 ML AMPUL NASAL SCH ×2 (08:46→21:01)
[2022-10-28] MEDS: EMPAGLIFLOZIN 25 MG TABLET PO SCH (08:46)
[2022-10-28] MEDS: PANTOPRAZOLE SODIUM 40 MG DR TABLET PO SCH (08:46)
[2022-10-28] MEDS: MULTIVITAMINS WITH MINERALS, THERAPEUTIC TABLET PO SCH (08:46)
[2022-10-28] MEDS: FUROSEMIDE 20 MG TABLET PO SCH (08:46)
[2022-10-28] MEDS: SPIRONOLACTONE 25 MG TABLET PO SCH (08:46)
[2022-10-28] MEDS ORDERED: SPIR-37 PO (09:28)
[2022-10-28] MEDS ORDERED: TAMS0.4C34 PO (09:28)
[2022-10-28] MEDS ORDERED: PANT-31 PO (09:28)
[2022-10-28] MEDS ORDERED: GABA-1216 PO (09:28)
[2022-10-28] MEDS ORDERED: MULT-1239 PO (09:28)
[2022-10-28] MEDS ORDERED: LACT10SO10 PO (09:28)
[2022-10-28] MEDS ORDERED: INSU100V SQ (09:28)
[2022-10-28] MEDS: INSULIN LISPRO 100 UNITS/ML SQ PRN ×3 (13:34→21:08)
[2022-10-28 14:21] LABS: GLUCOMETER DEV NAME(LOC) 2WR.1D; GLUCOSE,POINT OF CARE 234 MG/DL (70-110)
[2022-10-28 14:21] LABS: GLUCOMETER DEV NAME(LOC) 2WR.2B; GLUCOSE,POINT OF CARE 143 MG/DL (70-110)
[2022-10-28 17:51] LABS: GLUCOMETER DEV NAME(LOC) 2WR.1D; GLUCOSE,POINT OF CARE 225 MG/DL (70-110)
[2022-10-28 20:25] VITALS: BP 128/65; PULSE 86; RESP 19; TEMP 97.7; O2SAT 99
[2022-10-28 20:30] LABS: GLUCOMETER DEV NAME(LOC) 2WR.1D; GLUCOSE,POINT OF CARE 167 MG/DL (70-110)
[2022-10-28] MEDS: GABAPENTIN 100 MG CAPSULE PO SCH (20:59)
[2022-10-28] MEDS: TAMSULOSIN HCL 0.4 MG CAPSULE PO SCH (20:59)
[2022-10-28] MEDS: INSULIN GLARGINE,HUM.REC.ANLOG 100 UNITS/ML SQ SCH (21:07)
[2022-10-28] MEDS: MELATONIN 3 MG TABLET PO PRN (22:07)
[2022-10-28 22:47] VITALS: O2SAT 99
[2022-10-29 07:26] LABS: GLUCOMETER DEV NAME(LOC) 2WR.2B; GLUCOSE,POINT OF CARE 73 MG/DL (70-110)
[2022-10-29 08:05] VITALS: BP 99/57; PULSE 86; RESP 18; TEMP 98.3; O2SAT 95
[2022-10-29 08:15] VITALS: BP 103/46; PULSE 85; RESP 18
[2022-10-29] MEDS: PANTOPRAZOLE SODIUM 40 MG DR TABLET PO SCH (08:31)
[2022-10-29] MEDS: FUROSEMIDE 20 MG TABLET PO SCH (08:31)
[2022-10-29] MEDS: MULTIVITAMINS WITH MINERALS, THERAPEUTIC TABLET PO SCH (08:31)
[2022-10-29] MEDS: SPIRONOLACTONE 25 MG TABLET PO SCH (08:31)
[2022-10-29] MEDS: ETHYL ALCOHOL 62% ANTISEPTIC NASAL SANITIZER 0.6 ML AMPUL NASAL SCH ×2 (08:31→20:32)
[2022-10-29] MEDS: LACTULOSE 20 GM/30 ML SOLUTION UDCUP PO SCH ×2 (08:31→16:20)
[2022-10-29] MEDS: EMPAGLIFLOZIN 25 MG TABLET PO SCH (08:31)
[2022-10-29 08:45] VITALS: BP 111/56; PULSE 90; RESP 18
[2022-10-29] MEDS: INSULIN LISPRO 100 UNITS/ML SQ PRN ×3 (12:29→20:37)
[2022-10-29 13:11] LABS: GLUCOMETER DEV NAME(LOC) 2WR.1D; GLUCOSE,POINT OF CARE 216 MG/DL (70-110)
[2022-10-29 19:16] LABS: GLUCOMETER DEV NAME(LOC) 2WR.2B; GLUCOSE,POINT OF CARE 161 MG/DL (70-110)
[2022-10-29 20:31] LABS: GLUCOMETER DEV NAME(LOC) 2WR.1D; GLUCOSE,POINT OF CARE 147 MG/DL (70-110)
[2022-10-29] MEDS: GABAPENTIN 100 MG CAPSULE PO SCH (20:32)
[2022-10-29] MEDS: TAMSULOSIN HCL 0.4 MG CAPSULE PO SCH (20:32)
[2022-10-29] MEDS: INSULIN GLARGINE,HUM.REC.ANLOG 100 UNITS/ML SQ SCH (20:37)
[2022-10-29 21:00] VITALS: BP 114/87; PULSE 87; RESP 18; TEMP 98; O2SAT 97
[2022-10-29 22:00] VITALS: O2SAT 97
[2022-10-30] MEDS: LACTULOSE 20 GM/30 ML SOLUTION UDCUP PO SCH ×3 (00:22→15:47)
[2022-10-30 07:06] LABS: GLUCOMETER DEV NAME(LOC) 2WR.1D; GLUCOSE,POINT OF CARE 82 MG/DL (70-110)
[2022-10-30 09:01] VITALS: BP 122/64; PULSE 85; RESP 19; TEMP 98; O2SAT 100
[2022-10-30] MEDS: ETHYL ALCOHOL 62% ANTISEPTIC NASAL SANITIZER 0.6 ML AMPUL NASAL SCH ×2 (10:05→20:52)
[2022-10-30] MEDS: SPIRONOLACTONE 25 MG TABLET PO SCH (10:06)
[2022-10-30] MEDS: EMPAGLIFLOZIN 25 MG TABLET PO SCH (10:07)
[2022-10-30] MEDS: FUROSEMIDE 20 MG TABLET PO SCH (10:08)
[2022-10-30] MEDS: PANTOPRAZOLE SODIUM 40 MG DR TABLET PO SCH (10:08)
[2022-10-30] MEDS: MULTIVITAMINS WITH MINERALS, THERAPEUTIC TABLET PO SCH (10:08)
[2022-10-30] MEDS: INSULIN LISPRO 100 UNITS/ML SQ PRN ×3 (12:16→22:09)
[2022-10-30 14:36] LABS: GLUCOMETER DEV NAME(LOC) 2WR.1D; GLUCOSE,POINT OF CARE 165 MG/DL (70-110)
[2022-10-30 16:40] LABS: GLUCOMETER DEV NAME(LOC) 2WR.2B; GLUCOSE,POINT OF CARE 146 MG/DL (70-110)
[2022-10-30 19:51] LABS: GLUCOMETER DEV NAME(LOC) 2WR.2B; GLUCOSE,POINT OF CARE 157 MG/DL (70-110)
[2022-10-30] MEDS: TAMSULOSIN HCL 0.4 MG CAPSULE PO SCH (20:53)
[2022-10-30] MEDS: GABAPENTIN 100 MG CAPSULE PO SCH (20:53)
[2022-10-30] MEDS: LEVOFLOXACIN 500 MG TABLET PO SCH (20:57)
[2022-10-30] MEDS: INSULIN GLARGINE,HUM.REC.ANLOG 100 UNITS/ML SQ SCH (22:08)
[2022-10-30 23:16] LABS: GLUCOMETER DEV NAME(LOC) 2WR.1D; GLUCOSE,POINT OF CARE 143 MG/DL (70-110)
[2022-10-30 23:28] VITALS: O2SAT 98
[2022-10-30 23:40] VITALS: BP 123/67; PULSE 87; RESP 20; TEMP 98.5; O2SAT 99
[2022-10-31] MEDS: LACTULOSE 20 GM/30 ML SOLUTION UDCUP PO SCH ×4 (00:02→22:18)
[2022-10-31 07:21] LABS: GLUCOMETER DEV NAME(LOC) 2WR.1D; GLUCOSE,POINT OF CARE 100 MG/DL (70-110)
[2022-10-31 08:05] VITALS: BP 121/63; PULSE 94; RESP 19; TEMP 98.1; O2SAT 95
[2022-10-31] MEDS: MULTIVITAMINS WITH MINERALS, THERAPEUTIC TABLET PO SCH (08:23)
[2022-10-31] MEDS: ETHYL ALCOHOL 62% ANTISEPTIC NASAL SANITIZER 0.6 ML AMPUL NASAL SCH ×2 (08:23→21:12)
[2022-10-31] MEDS: EMPAGLIFLOZIN 25 MG TABLET PO SCH (08:24)
[2022-10-31] MEDS: SPIRONOLACTONE 25 MG TABLET PO SCH (08:24)
[2022-10-31] MEDS: LEVOFLOXACIN 500 MG TABLET PO SCH (08:24)
[2022-10-31] MEDS: PANTOPRAZOLE SODIUM 40 MG DR TABLET PO SCH (08:24)
[2022-10-31] MEDS: FUROSEMIDE 20 MG TABLET PO SCH (08:24)
[2022-10-31] MEDS ORDERED: LEVOFLOXACIN 500 MG TABLET PO SCH (09:00)
[2022-10-31] MEDS ORDERED: SPIR-37 PO (09:58)
[2022-10-31] MEDS ORDERED: GABA-1216 PO (09:58)
[2022-10-31] MEDS ORDERED: INSU100V SQ (09:58)
[2022-10-31] MEDS ORDERED: LEVO-72 PO (09:58)
[2022-10-31] MEDS ORDERED: INSLAN SQ (09:58)
[2022-10-31] MEDS ORDERED: LACT10SO10 PO (09:58)
[2022-10-31] MEDS ORDERED: TAMS-1 PO (09:58)
[2022-10-31] MEDS ORDERED: EMPA25TA3 PO (09:58)
[2022-10-31] MEDS ORDERED: PANT-31 PO (09:58)
[2022-10-31] MEDS ORDERED: FURO20 PO (09:58)
[2022-10-31] MEDS ORDERED: MULT-1239 PO (09:58)
[2022-10-31] MEDS: INSULIN LISPRO 100 UNITS/ML SQ PRN ×2 (12:42→21:15)
[2022-10-31 13:01] LABS: GLUCOMETER DEV NAME(LOC) 2WR.1D; GLUCOSE,POINT OF CARE 171 MG/DL (70-110)
[2022-10-31 17:26] LABS: GLUCOMETER DEV NAME(LOC) 2WR.2B; GLUCOSE,POINT OF CARE 127 MG/DL (70-110)
[2022-10-31 20:00] VITALS: BP 122/65; PULSE 101; RESP 18; TEMP 98.2; O2SAT 96
[2022-10-31 21:00] VITALS: O2SAT 96
[2022-10-31] MEDS: GABAPENTIN 100 MG CAPSULE PO SCH (21:12)
[2022-10-31] MEDS: TAMSULOSIN HCL 0.4 MG CAPSULE PO SCH (21:12)
[2022-10-31] MEDS: INSULIN GLARGINE,HUM.REC.ANLOG 100 UNITS/ML SQ SCH (21:13)
[2022-10-31 21:36] LABS: GLUCOMETER DEV NAME(LOC) 2WR.2B; GLUCOSE,POINT OF CARE 218 MG/DL (70-110)
[2022-11-01 06:16] LABS: GLUCOMETER DEV NAME(LOC) 2WR.1D; GLUCOSE,POINT OF CARE 69 MG/DL (70-110)
[2022-11-01 08:15] VITALS: BP 118/65; PULSE 101; RESP 18; TEMP 97.5; O2SAT 98
[2022-11-01] MEDS: LACTULOSE 20 GM/30 ML SOLUTION UDCUP PO SCH (08:54)
[2022-11-01] MEDS: EMPAGLIFLOZIN 25 MG TABLET PO SCH (09:00)
[2022-11-01] MEDS: ETHYL ALCOHOL 62% ANTISEPTIC NASAL SANITIZER 0.6 ML AMPUL NASAL SCH (09:00)
[2022-11-01] MEDS: PANTOPRAZOLE SODIUM 40 MG DR TABLET PO SCH (09:01)
[2022-11-01] MEDS: SPIRONOLACTONE 25 MG TABLET PO SCH (09:01)
[2022-11-01] MEDS: FUROSEMIDE 20 MG TABLET PO SCH (09:02)
[2022-11-01] MEDS: LEVOFLOXACIN 500 MG TABLET PO SCH (09:02)
[2022-11-01] MEDS: MULTIVITAMINS WITH MINERALS, THERAPEUTIC TABLET PO SCH (09:02)
[2022-11-01] MEDS: INSULIN LISPRO 100 UNITS/ML SQ PRN (12:46)
[2022-11-01 13:31] LABS: GLUCOMETER DEV NAME(LOC) 2WR.2B; GLUCOSE,POINT OF CARE 156 MG/DL (70-110)
== END 2022-11-01 15:15 | disposition home health service (06) | DRG 552 ==
LOC: 2WR 10-12 14:41
PROVIDERS: ADMIT Physical Medicine & Rehabilitation; ATTEND Physical Medicine & Rehabilitation
DX: M48.061 Spinal stenosis, lumbar region without neurogenic claudication (principal); N39.0 Urinary tract infection, site not specified; K59.2 Neurogenic bowel, not elsewhere classified; E46 Unspecified protein-calorie malnutrition; D61.818 Other pancytopenia; K74.60 Unspecified cirrhosis of liver; E11.42 Type 2 diabetes mellitus with diabetic polyneuropathy; D69.6 Thrombocytopenia, unspecified; D63.1 Anemia in chronic kidney disease; E66.9 Obesity, unspecified; G47.33 Obstructive sleep apnea (adult) (pediatric); R33.9 Retention of urine, unspecified; K76.82 Hepatic encephalopathy; N31.9 Neuromuscular dysfunction of bladder, unspecified; B96.20 Unspecified Escherichia coli [E. coli] as the cause of diseases classified elsewhere; G25.81 Restless legs syndrome; K75.81 Nonalcoholic steatohepatitis (NASH); M54.9 Dorsalgia, unspecified; R41.89 Other symptoms and signs involving cognitive functions and awareness; R26.9 Unspecified abnormalities of gait and mobility; R15.9 Full incontinence of feces; M48.04 Spinal stenosis, thoracic region; Z91.199 Patient's noncompliance with other medical treatment and regimen due to unspecified reason; Z83.3 Family history of diabetes mellitus; Z85.048 Personal history of other malignant neoplasm of rectum, rectosigmoid junction, and anus; Z85.05 Personal history of malignant neoplasm of liver; Z68.32 Body mass index [BMI] 32.0-32.9, adult; Z79.4 Long term (current) use of insulin
CPT/HCPCS: 80053; 81001; 82140; 82962; 85025; 85610; 87081; 87086; 87186; 92507; 92523; 92610; 93970; 97110; 97112; 97116; 97163; 97167; 97530; 97535; 99285; 99366; J1815; Q9967